=== PATIENT | male | born 1985 | race Asian ===

== ENCOUNTER 2025-11-13 09:14 | Outpatient (CLI) | payer BC | END 2025-11-13 09:15 | disposition home or self-care (01) | LOC: CSHMRI 09:14 | PROVIDERS: ATTEND Orthopaedic Surgery | DX: M50.121 Cervical disc disorder at C4-C5 level with radiculopathy (principal); Z98.890 Other specified postprocedural states; M50.122 Cervical disc disorder at C5-C6 level with radiculopathy; M50.123 Cervical disc disorder at C6-C7 level with radiculopathy; M48.02 Spinal stenosis, cervical region; M47.22 Other spondylosis with radiculopathy, cervical region | CPT/HCPCS: 72141 ==